=== PATIENT | female | born 1995 | race Caucasian/White ===

== ENCOUNTER 2017-05-29 22:49 | Emergency (ER) | payer MEDICAID ==
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
== END 2017-05-29 23:20 | disposition left against medical advice (07) ==
LOC: ER 22:49
DX: O26.892 Other specified pregnancy related conditions, second trimester (principal); S39.91XA Unspecified injury of abdomen, initial encounter; X58.XXXA Exposure to other specified factors, initial encounter; Y93.9 Activity, unspecified; Y92.89 Other specified places as the place of occurrence of the external cause; Y99.8 Other external cause status
CPT/HCPCS: Z7502